=== PATIENT | female | born 1950 | race Caucasian/White ===

== ENCOUNTER → 2023-10-07 13:27 | Outpatient (CLI) | payer MEDICARE, MEDICAID, SELFPAY ==
--- NOTE | 2023-10-07 13:30 | DI.RAD.S_ITS ---
PROCEDURE: FL JOINT INJECTION MEDIUM RT INDICATIONS: Primary osteoarthritis, right shoulder COMPARISON: None. TECHNIQUE: The indications, alternatives, benefits, risks, and complications of the procedure were explained to the patient. Written informed consent was obtained and placed in the chart. The patient was placed in an appropriate position on the fluoroscopy table, and a site was chosen for percutaneous access under fluoroscopic guidance. The site was prepped and draped in a sterile fashion. Local anesthetic was administered using a 1% lidocaine solution. A hypodermic or spinal needle was then used to access the symptomatic joint. Intra-articular location of the needle tip was confirmed by injecting a small amount of contrast, followed by steroid administration. The needle was then withdrawn, and a bandage applied to the puncture site. FINDINGS: Joint injected: Right shoulder Medications injected: 4 mL of 40 mg/mL Kenalog and 0.5% Ropivacaine mixture. Patient's pain before injection: 3 out of 10. Patient's pain after injection: 1-2 out of 10. Complications: None. IMPRESSION: Successful fluoroscopically guided administration of steroid and anaesthetic solution into the right joint. Dictated by: Jimy Ltitle M.D. on 10/07/2023 at 15:31 Approved by: Jimy Little M.D. on 10/07/2023 at 15:32
[2023-10-07] MEDS: LIDOCAINE 1% 20 ML INJ (14:28)
[2023-10-07] MEDS: ROPIVACAINE 0.5% PF 5 MG/ML 20ML VIAL 20 ML INJ (14:28)
[2023-10-07] MEDS: TRIAMCINOLONE 40 MG/ML VIAL INTRA-ARTI (14:29)
== END ==
LOC: RAD 13:29
PROVIDERS: Referring Provider Physician Assistant Surgical; Visit Provider Physician Assistant Surgical
DX: M19.011 Primary osteoarthritis, right shoulder (principal)
CPT/HCPCS: 20605; 77002; A9579; Q9967